=== PATIENT | male | born 1980 | race Caucasian/White ===

== ENCOUNTER 2019-07-20 20:12 | Observation (INO) | payer OTHER ==
[2019-07-20] MEDS ORDERED: SODIUM CHLORIDE 0.9% 1,000 ML IV ONE (21:17)
[2019-07-20] MEDS ORDERED: ONDANSETRON 4 MG/2 ML VIAL IVP STA (21:17)
[2019-07-20] MEDS ORDERED: MORPHINE SULFATE 4 MG/ML SYRINGE IVP STA (21:17)
[2019-07-20] MEDS ORDERED: SODIUM CHLORIDE 0.9% 500 ML 500 ML IV ONE (21:17)
--- NOTE | 2019-07-20 21:47 | ED ---
Abdominal Pain HPI - General Chief Complaint: Abdominal Pain Stated Complaint: Poss Gallbladder Stones Time Seen by Provider: 07/20/19 20:38 Source: patient Mode of arrival: ambulatory Limitations: no limitations - History of Present Illness Initial Comments: 39-year-old male patient presents to the emergency department today for evaluation of midepigastric and right upper quadrant abdominal pain. Patient states the pain has been present for the last 2-3 days. States he did see his doctor who ordered outpatient labs and ultrasound which she did have performed earlier today. Patient states he was called by his doctor and told that he had abnormal lab results and ultrasound and instructed him to come to a facility with a surgeon. Patient states he has been feeling nauseated but has not vomited. States he was having light-colored stools. Denies any constipation or diarrhea. He denies any fever or chills with this. He denies history of ab dominal surgery. Patient denies any recent rash, cough, shortness of breath, chest pain, back pain, numbness, tingling, dizziness, weakness, hematuria, dysuria, urinary urgency, urinary frequency, headache, visual changes, or any other complaints. - Related Data Home Medications Medication Instructions Recorded Confirmed ALPRAZolam [Xanax] 0.25 mg PO BID PRN 07/20/19 07/20/19 Allergies Allergy/AdvReac Type Severity Reaction Status Date / Time Iodinated Contrast Media Allergy Anaphylaxis Verified 07/20/19 22:30 iodine Allergy Anaphylaxis Verified 07/20/19 22:30 Review of Systems ROS Statement: Those systems with pertinent positive or pertinent negative responses have been documented in the HPI. ROS Other: All systems not noted in ROS Statement are negative. Past Medical History Past Medical History: Hypertension History of Any Multi-Drug Resistant Organisms: MRSA Date of last positivie culture/infection: MDRO Source:: rectal Additional Past Surgical History / Comment(s): rectal surgery Past Psychological History: No Psychological Hx Reported Smoking Status: Current every day smoker Past Alcohol Use History: None Reported Past Drug Use History: Marijuana General Exam Limitations: no limitations General appearance: alert, in no apparent distress, other (This is a well- developed, well-nourished adult male patient in no acute distress. Vital signs upon presentation are temperature 98.7F, pulse 102) ENT exam: Present: normal exam, normal oropharynx, mucous membranes moist Respiratory exam: Present: normal lung sounds bilaterally. Absent: respiratory distress, wheezes, rales, rhonchi, stridor Cardiovascular Exam: Present: regular rate, normal rhythm, normal heart sounds. Absent: systolic murmur, diastolic murmur, rubs, gallop, clicks GI/Abdominal exam: Present: soft, tenderness (Midepigastric and right upper quad rant tenderness.), normal bowel sounds, other (Negative Gong sign.). Absent: distended, guarding, rebound, rigid Neurological exam: Present: alert, oriented X3, CN II-XII intact Psychiatric exam: Present: normal affect, normal mood Skin exam: Present: warm, dry, intact, normal color. Absent: rash Course Vital Signs 07/20/19 07/20/19 20:21 22:12 Temperature 98.7 F Pulse Rate 102 H 88 Respiratory 20 18 Rate Blood Pressure 161/82 131/78 O2 Sat by Pulse 97 95 Oximetry Medical Decision Making - Medical Decision Making 39-year-old male patient presents to the emergency department today for evaluati on of upper abdominal pain, midepigastric and right upper quadrant. Physical examination did reveal tenderness over the midepigastric and right upper quadrant regions. Patient did have labs and ultrasound performed outpatient at [facility] this morning. I did obtain records, US showed multiple gallstones, gall bladder wall is upper limits of normal. Hepatomegaly and hepatic steatosis. Labs were reviewed and showed elevated wbc count at 14.6, AST 252, ALT 427, Alk phos 145. Patient will be admitted to the hospital for further evaluation of his abdominal pain and repeat labs in the morning. Disposition Clinical Impression: Abdominal pain, Cholelithiasis Disposition: ADMITTED IP TO THIS HOSP Condition: Serious Decision to Admit Reason: Admit from EC Decision Date: 07/20/19 Decision Time: 22:08
[2019-07-20] MEDS ORDERED: MORPHINE SULFATE 4 MG/ML SYRINGE IV PRN (22:06)
[2019-07-20] MEDS ORDERED: ONDANSETRON 4 MG/2 ML VIAL IVP PRN (22:06)
[2019-07-20] MEDS ORDERED: NALOXONE 0.4 MG/ML 1 ML VIAL IV PRN (22:06)
[2019-07-20] MEDS ORDERED: SODIUM CHLORIDE 0.9% 1,000 ML IV SCH (22:15)
[2019-07-21 08:31] VITALS: BP 104/62; PULSE 82; RESP 18; TEMP 98.5
[2019-07-21] MEDS ORDERED: SODIUM CHLORIDE 0.9% 1,000 ML IV SCH (09:15)
[2019-07-21] MEDS ORDERED: PANTOPRAZOLE 40 MG/10 ML VIAL IVP SCH (09:15)
--- NOTE | 2019-07-21 09:20 | P.GSCN ---
<Elvira Painter - Last Filed: 07/21/19 09:19> History of Present Illness Consult date: 07/21/19 Reason for Consult: abdominal pain Requesting physician: Rachel Davila History of present illness: CHIEF COMPLAINT: Abdominal pain HISTORY OF PRESENT ILLNESS: 39-year-old male who began having epigastric and right upper quadrant abdominal pain on Wednesday. Patient states he had Tahira's and about 15 minutes after he began having discomfort. He states he went to lay down for a few hours and the pain did get a little better. He states the next day he woke up and had a light colored bowel movement which worried him. He contacted his physician who ordered an ultrasound and blood work. The patient reports having this discomfort intermittently for approximately one year. He does report the pain seems to correspond to eating greasy or fatty foods. Denies dark urine. Reports very rare alcohol use. Denies history of hepatitis. PAST MEDICAL HISTORY: See list. PAST SURGICAL HISTORY: See list. SOCIAL HISTORY: No illicit drug use. REVIEW OF SYSTEMS: CONSTITUTIONAL: Denies fever or chills. HEENT: Denies blurred vision, vision changes, or eye pain. Denies hemoptysis CARDIOVASCULAR: Denies chest pain or pressure. RESPIRATORY: No shortness of breath. GASTROINTESTINAL: Refer to HPI for pertinent findings HEMATOLOGIC: Denies bleeding disorders. GENITOURINARY: Denies any blood in urine. SKIN: Denies pruitis. Denies rash. PHYSICAL EXAM: VITAL SIGNS: Reviewed. GENERAL: Well-developed in no acute distress. HEENT: No sclera icterus. Extraocular movements grossly intact. Moist buccal mucosa. Head is atraumatic, normocephalic. ABDOMEN: Soft. Nondistended. Mild tenderness upon palpation of right upper quadrant. NEUROLOGIC: Alert and oriented. Cranial nerves II through XII grossly intact. LABORATORY DATA: Laboratory data from outside facility reveals white count 14.6. Hemoglobin 15.9. Platelet count 264. ALT 427. AST 252. Bilirubin 0.4. Amylase and lipase within normal limits. IMAGING: Abdominal ultrasound: Gallbladder full of shadowing gallstones. Largest measuring approximately 1.7 cm. Gallbladder wall on the upper normal thickness at 0.3 cm. No pericholecystic fluid. No dilation of the common bile duct. ASSESSMENT: 1. Abdominal pain 2. Cholelithiasis, transaminitis, possible acute cholecystitis PLAN: NPO. Continue IV fluids at 100cc/hr Zosyn Q8 hours. Monitor CBC Await repeat CMP Plan for lap juwan. Timing yet to be determined. Nurse practitioner note has been reviewed by physician. Signing provider agrees with the documented findings, assessment, and plan of care. Past Medical History Past Medical History: Hypertension History of Any Multi-Drug Resistant Organisms: MRSA Year Discovered:: MDRO Source:: rectal Additional Past Surgical History / Comment(s): Rectal surgery - polynatal cyst on tailbone, hernia repair as a kid Past Psychological History: No Psychological Hx Reported Smoking Status: Current every day smoker Past Alcohol Use History: None Reported Past Drug Use History: Marijuana - Past Family History Father History Unknown: Yes Medications and Allergies Home Medications Medication Instructions Recorded Confirmed Type ALPRAZolam [Xanax] 0.25 mg PO BID PRN 07/20/19 07/20/19 History Amoxicillin/Potassium Clav 1 tab PO BID 7 Days #14 tab 07/21/19 Rx [Augmentin 875-125 Tablet] Allergies Allergy/AdvReac Type Severity Reaction Status Date / Time Iodinated Contrast Media Allergy Anaphylaxis Verified 07/20/19 22:30 iodine Allergy Anaphylaxis Verified 07/20/19 22:30 Surgical - Exam Vital Signs Temp Pulse Resp BP Pulse Ox 98.7 F 102 H 20 161/82 97 07/20/19 20:21 07/20/19 20:21 07/20/19 20:21 07/20/19 20:21 07/20/19 20:21 <Luis M Barahona - Last Filed: 07/21/19 13:41> History of Present Illness History of present illness: As above. Patient with elevated liver enzymes suspicious for choledocholithiasis. Feels much better today. He notices urine was light colored yesterday. Did not appreciate the color of his urine. History of intermittent episodes happening almost monthly. Ultrasound shows gallstones with a normal bile duct. Today's liver enzymes improved. Both alkaline phosphatase and bilirubin normal. Options reviewed with the patient. He would like to go home today if possible and return next week for elective cholecystectomy. I think that is reasonable given the improvement in his liver enzymes and his improvement in symptoms. Will schedule for elective laparoscopic cholecystectomy Wednesday. We'll repeat CMP on arrival. Risks of bleeding, infection, bile leak, bile duct injury, retained common bile duct stone, trocar injury, conversion to an open procedure, hernia, anesthesia related complications were reviewed. The patient understands and wishes to proceed. Surgical - Exam Vital Signs Temp Pulse Resp BP Pulse Ox 98.7 F 102 H 20 161/82 97 07/20/19 20:21 07/20/19 20:21 07/20/19 20:21 07/20/19 20:21 07/20/19 20:21 Results - Labs 07/21/19 09:23 07/21/19 09:23 Abnormal Lab Results - Last 24 Hours (Table) 07/21/19 07/21/19 Range/Units 09:23 09:23 WBC 13.9 H (3.8-10.6) k/uL Neutrophils # 9.9 H (1.3-7.7) k/uL Glucose 104 H (74-99) mg/dL AST 104 H (17-59) U/L ALT 283 H (4-49) U/L Diabetes panel 07/21/19 Range/Units 09:23 Sodium 139 (137-145) mmol/L Potassium 5.0 (3.5-5.1) mmol/L Chloride 104 (98-107) mmol/L Carbon Dioxide 30 (22-30) mmol/L BUN 13 (9-20) mg/dL Creatinine 0.77 (0.66-1.25) mg/dL Glucose 104 H (74-99) mg/dL Calcium 9.2 (8.4-10.2) mg/dL AST 104 H (17-59) U/L ALT 283 H (4-49) U/L Alkaline Phosphatase 111 (38-126) U/L Total Protein 7.0 (6.3-8.2) g/dL Albumin 3.8 (3.5-5.0) g/dL Calcium panel 07/21/19 Range/Units 09:23 Calcium 9.2 (8.4-10.2) mg/dL Albumin 3.8 (3.5-5.0) g/dL Pituitary panel 07/21/19 Range/Units 09:23 Sodium 139 (137-145) mmol/L Potassium 5.0 (3.5-5.1) mmol/L Chloride 104 (98-107) mmol/L Carbon Dioxide 30 (22-30) mmol/L BUN 13 (9-20) mg/dL Creatinine 0.77 (0.66-1.25) mg/dL Glucose 104 H (74-99) mg/dL Calcium 9.2 (8.4-10.2) mg/dL Adrenal panel 07/21/19 Range/Units 09:23 Sodium 139 (137-145) mmol/L Potassium 5.0 (3.5-5.1) mmol/L Chloride 104 (98-107) mmol/L Carbon Dioxide 30 (22-30) mmol/L BUN 13 (9-20) mg/dL Creatinine 0.77 (0.66-1.25) mg/dL Glucose 104 H (74-99) mg/dL Calcium 9.2 (8.4-10.2) mg/dL Total Bilirubin 0.5 (0.2-1.3) mg/dL AST 104 H (17-59) U/L ALT 283 H (4-49) U/L Alkaline Phosphatase 111 (38-126) U/L Total Protein 7.0 (6.3-8.2) g/dL Albumin 3.8 (3.5-5.0) g/dL
[2019-07-21 09:43] LABS: Basophils % (A) 0 %; Eosinophils # (A) 0.2 k/uL (0-0.7); Eosinophils % (A) 2 %; HCT 48.2 % (39.0-53.0); HGB 15.4 gm/dL (13.0-17.5); Hypochromasia Slight; Lymphocytes # (A) 2.5 k/uL (1.0-4.8); Lymphocytes % (A) 18 %; MCH 30.9 pg (25.0-35.0); MCHC 31.9 g/dL (31.0-37.0); MCV 96.8 fL (80.0-100.0); Mean Platelet Volume 8.3; Monocytes # (A) 0.7 k/uL (0-1.0); Monocytes % (A) 5 %; Neutrophils # (A) 9.9 k/uL (1.3-7.7); Neutrophils % (A) 72 %; Platelet Count 244 k/uL (150-450); RBC 4.98 m/uL (4.30-5.90); RDW 13.4 % (11.5-15.5); WBC 13.9 k/uL (3.8-10.6)
[2019-07-21 09:51] LABS: ALT 283 U/L (4-49); AST 104 U/L (17-59); African American GFR (CKD) >90 (>60 ml/min/1.73 sqM); Albumin 3.8 g/dL (3.5-5.0); Alkaline Phosphatase 111 U/L (38-126); Anion Gap 5 mmol/L; Blood Urea Nitrogen 13 mg/dL (9-20); Calcium 9.2 mg/dL (8.4-10.2); Carbon Dioxide 30 mmol/L (22-30); Chloride 104 mmol/L (98-107); Glucose 104 mg/dL (74-99); Non-African American GFR(CKD) >90 (>60 ml/min/1.73 sqM); Sodium 139 mmol/L (137-145); Total Bilirubin 0.5 mg/dL (0.2-1.3)
[2019-07-21] MEDS ORDERED: NICOTINE 14MG/24HR PATCH TRANSDERM SCH (12:30)
[2019-07-21] MEDS ORDERED: PIPERACILLIN-TAZOBACTAM 3.375 GM in SODIUM CHLORIDE 0.9% 100 ML IVPB SCH (16:00)
--- NOTE | 2019-07-21 16:55 | HP ---
HISTORY AND PHYSICAL CHIEF COMPLAINT: Abdominal pain. HISTORY OF PRESENT ILLNESS: This is the first known admission for this 39-year-old obese male. He states he presented to the emergency room after a 2- or 3-day history of upper abdominal pain which was starting to get worse. He then developed nausea and vomiting. When he came to the emergency room there was a suggestion that this was cholecystitis with cholelithiasis, and he was admitted. REVIEW OF SYSTEMS: He has had no neurologic problems, headaches, difficulty with vision or hearing, chest pain, shortness of breath, cough, pulmonary disease, hypertension, palpitations, heart disease, murmurs, rheumatic fever, orthopnea, PND, hematemesis, melena, hematochezia, cirrhosis, jaundice, etc. He did notice that he had a "shelton stool." He has had no renal failure, renal disease, hematuria, frequency, urgency, dysuria, incontinence, diabetes, etc. Past medical history, family history, and personal and social histories are unremarkable and noncontributory otherwise. The only medication he is on is Xanax. He is ALLERGIC TO IODINE. The only surgery he has had is 3 different procedures for a pilonidal cyst. He smokes a pack of cigarettes a day. PHYSICAL EXAMINATION: Blood pressure 145/85 with a pulse of 69, respirations of 32, and he is afebrile. In general he appeared to be obese. Skin was slightly pale. There was no jaundice. Head, ears, eyes, nose, mouth and throat were normal. The chest was clear. Cardiac exam was normal. The abdomen was protuberant. He was tender over the epigastrium. There were no definite masses. Bowel sounds were present. Extremities were normal. Neurologically he was intact. He is admitted to the hospital with the diagnoses: 1. Upper abdominal pain, etiology unknown. 2. Rule out gallbladder disease, pancreatitis or other etiology. PLAN: 1. Bed rest. 2. IV fluids. 3. Follow-up abdominal exam. 4. Consult with General Surgery. MMODL / IJN: [id number] /
[2019-07-21 17:46] LABS: Hepatitis A Antibody IgM Non-Reactive (Non-Reactive); Hepatitis B Core IgM Non-Reactive (Non-Reactive); Hepatitis B Surface Antigen Non-Reactive (Non-Reactive); Hepatitis C IgG Antibody Non-Reactive (Non-Reactive)
--- NOTE | 2019-07-21 20:02 | DS ---
DISCHARGE SUMMARY CHIEF COMPLAINT: Abdominal pain. HISTORY OF PRESENT ILLNESS AND PHYSICAL EXAMINATION: Details of this man's history and physical can be found in the initial workup. LABORATORY STUDIES: While he was in the hospital he had laboratory studies, details of which can be found in the laboratory section of his chart. COURSE IN THE HOSPITAL: After admission he was placed on bedrest and started on intravenous fluids, and he was kept n.p.o. He was seen by Surgery. It was confirmed that he had cholecystitis and cholelithiasis. Surgery felt that he could be discharged home and undergo surgery in the near future as an outpatient. FINAL DIAGNOSIS: Acute cholecystitis with cholelithiasis. OPERATIONS: None. CONSULTATION: General Surgery. He is improved. MMODL / IJN: [id number] /
== END 2019-07-21 14:43 | disposition home or self-care (01) ==
LOC: EC 20:12 → 4SSUR 22:06
PROVIDERS: ADMIT Family Medicine; ATTEND Family Medicine
DX: K80.00 Calculus of gallbladder with acute cholecystitis without obstruction (principal); I10 Essential (primary) hypertension; K76.0 Fatty (change of) liver, not elsewhere classified; R16.0 Hepatomegaly, not elsewhere classified; R74.0 Nonspecific elevation of levels of transaminase and lactic acid dehydrogenase [LDH]; E66.9 Obesity, unspecified; Z68.43 Body mass index [BMI] 50.0-59.9, adult; R74.8 Abnormal levels of other serum enzymes; Z86.14 Personal history of Methicillin resistant Staphylococcus aureus infection; Z98.890 Other specified postprocedural states; Z91.041 Radiographic dye allergy status; Z91.048 Other nonmedicinal substance allergy status; F17.210 Nicotine dependence, cigarettes, uncomplicated
CPT/HCPCS: 96376; 96361; 96375 ×2; 96374; 99285; 80053; 80074; 83690; 85025; 87635; G0378 ×2; S4990; J2270 ×2; J2405 ×2; C9113

== ENCOUNTER 2019-07-25 12:03 | Day surgery (SDC) | payer OTHER ==
[~2019-07-25 12:03] MED LIST: DEXAMETHASONE SOD PHOSPHATE 10 MG/ML 1 ML VIAL IV ONE; HYDROmorphone 0.5 MG/0.5 ML SYRINGE IVP PRN; LACTATED RINGERS 1,000 ML IV SCH; LIDOCAINE 1% (10MG/ML) FOR IV START INTRADERMA PRN; MIDAZOLAM 2 MG/2 ML VIAL IV PRN; ONDANSETRON 4 MG/2 ML VIAL IVP ONE; fentaNYL (PF) 50 MCG/ML 2 ML AMP IV PRN
--- NOTE | 2019-07-25 12:29 | P.GSHP ---
History of Present Illness H&P Date: 07/25/19 Chief Complaint: Choledocholithiasis Please refer to consult from last week. Patient was in the hospital with right upper quadrant and epigastric pain. Was found to have elevated liver enzymes. Liver enzymes were improving. Patient's pain was likewise resolving. He was discharged home with plans for outpatient cholecystectomy. Returns to the hospital today for laparoscopic cholecystectomy. Pain still improved. Labs from today are pending. Previous workup showed multiple gallstones on ultrasound. Hepatitis studies negative. Past Medical History Past Medical History: Hypertension History of Any Multi-Drug Resistant Organisms: MRSA Date of last positivie culture/infection: MDRO Source:: rectal Additional Past Surgical History / Comment(s): Rectal surgery - polynatal cyst on tailbone, hernia repair as a kid Past Psychological History: No Psychological Hx Reported Smoking Status: Current every day smoker Past Alcohol Use History: None Reported Past Drug Use History: Marijuana - Past Family History Father History Unknown: Yes Medications and Allergies Home Medications Medication Instructions Recorded Confirmed Type ALPRAZolam [Xanax] 0.25 mg PO BID PRN 07/20/19 07/20/19 History Amoxicillin/Potassium Clav 1 tab PO BID 7 Days #14 tab 07/21/19 Rx [Augmentin 875-125 Tablet] Allergies Allergy/AdvReac Type Severity Reaction Status Date / Time Iodinated Contrast Media Allergy Anaphylaxis Verified 07/20/19 22:30 iodine Allergy Anaphylaxis Verified 07/20/19 22:30 Surgical - Exam Physical exam: General: Well-developed, well-nourished HEENT: Normocephalic, sclerae nonicteric Abdomen: Nontender, nondistended Extremities: No edema Neuro: Alert and oriented Assessment and Plan (1) Choledocholithiasis Narrative/Plan: 39-year-old male with suspected choledocholithiasis. Check CMP level at this time. Proceed with laparoscopic, possible open cholecystectomy at this time. Risks of bleeding, infection, bile leak, bile duct injury, retained common bile duct stone, trocar injury, conversion to an open procedure, hernia, anesthesia related complications were reviewed. The patient understands and wishes to proceed. Current Visit: Yes Status: Acute Code(s): K80.50 - CALCULUS OF BILE DUCT W/O CHOLANGITIS OR CHOLECYST W/O OBST SNOMED Code(s): 220804046
[2019-07-25 12:40] VITALS: RESP 16
[2019-07-25] MEDS ORDERED: ONDANSETRON 4 MG/2 ML VIAL IVP ONE (12:45)
[2019-07-25] MEDS ORDERED: DEXAMETHASONE SOD PHOSPHATE 10 MG/ML 1 ML VIAL IV ONE (12:45)
[2019-07-25] MEDS ORDERED: SCOPOLAMINE 1.5MG/72HR PATCH TRANSDERM ONE (12:46)
[2019-07-25] MEDS ORDERED: HEPARIN SODIUM,PORCINE 5,000 UNIT/ML 1 ML VIAL SQ ONE (12:59)
[2019-07-25 13:07] LABS: ALT 81 U/L (4-49); AST 32 U/L (17-59); African American GFR (CKD) >90 (>60 ml/min/1.73 sqM); Albumin 4.5 g/dL (3.5-5.0); Alkaline Phosphatase 102 U/L (38-126); Anion Gap 11 mmol/L; Blood Urea Nitrogen 20 mg/dL (9-20); Carbon Dioxide 27 mmol/L (22-30); Chloride 104 mmol/L (98-107); Glucose 112 mg/dL (74-99); Non-African American GFR(CKD) >90 (>60 ml/min/1.73 sqM); Potassium 4.9 mmol/L (3.5-5.1); Sodium 142 mmol/L (137-145); Total Bilirubin 0.5 mg/dL (0.2-1.3); Total Protein 8.1 g/dL (6.3-8.2)
[2019-07-25] MEDS ORDERED: NEOSTIGMINE 1 MG/ML 10 ML VIAL ONE (13:08)
[2019-07-25] MEDS ORDERED: PROPOFOL 10 MG/ML 20 ML VIAL IV ONE (13:08)
[2019-07-25] MEDS ORDERED: fentaNYL (PF) 50 MCG/ML 2 ML AMP ONE (13:08)
[2019-07-25] MEDS ORDERED: GLYCOPYRROLATE 0.2 MG/ML 2 ML VIAL ONE (13:08)
[2019-07-25] MEDS ORDERED: MIDAZOLAM 2 MG/2 ML VIAL ONE (13:08)
[2019-07-25] MEDS ORDERED: ROCURONIUM BROMIDE 10 MG/ML 5 ML VIAL IV ONE (13:08)
[2019-07-25] MEDS ORDERED: LIDOCAINE 1% INJ 10MG/ML (20 ML MDV) ONE (13:08)
[2019-07-25] MEDS ORDERED: SUCCINYLCHOLINE CHLORIDE VIAL 200 MG/10 ML VIAL IV ONE (13:08)
[2019-07-25] MEDS ORDERED: BUPIVACAIN-EPI 0.25%-1:200,000 30 ML VIAL SQ ONE (13:13)
[2019-07-25] MEDS ORDERED: LACTATED RINGERS 1,000 ML IV ONE (14:09)
[2019-07-25] MEDS ORDERED: NALOXONE 0.4 MG/ML 1 ML VIAL IV PRN (14:39)
[2019-07-25] MEDS ORDERED: HYDROcodone/APAP 5-325MG 1 EACH TAB PO PRN (14:39)
--- NOTE | 2019-07-25 14:47 | P.OP ---
Date of Procedure: 07/25/19 Procedure(s) Performed: PREOPERATIVE DIAGNOSIS: Choledocholithiasis POSTOPERATIVE DIAGNOSIS: Same PROCEDURE: Laparoscopic cholecystectomy SURGEON: [place] EBL: Minimal see anesthesia record ANESTHESIA: Gen. COMPLICATIONS: None OPERATIVE PROCEDURE: The patient was brought and placed on the operating room table in the supine position. The patient was placed under general anesthesia at that time. The abdomen was prepped and draped in the usual sterile fashion. A small horizontal supraumbilical incision was made. The fascia was grasped with the Brenda forceps. The fascia was retracted anteriorly. The Veress needle was advanced into the peritoneal cavity. The saline drop test was normal. Insufflation took place up to 15 mmHg. A 5 mm optical trocar was advanced and the peritoneal cavity. 2 additional 5 mm trochars were placed in the right upper quadrant under direct visualization. A 12 mm trocar was advanced into the epigastric incision site. The patient's liver was quite large. We could not visualize stomach or liver given these significant volume of intraperitoneal omental fat. An additional 5 mm trocar was utilized in the left supraumbilical location to retract the omental fat inferiorly and posteriorly. The gallbladder was retracted superiorly and laterally. The peritoneum overlying the infundibulum was bluntly dissected. The patient's cystic duct was visualized. The junction between the cystic duct common and hepatic duct was identified. The cystic duct was then divided after placement of 3 12 mm clips on the patient's side and one on the specimen side. The cystic artery was identified and clipped as well. A small vessel was seen along the gallbladder fossa and clipped as well. The gallbladder was then removed from the liver bed using both electrocautery and the LigaSure device. The gallbladder was then removed from the epigastric trocar site with an Endo Catch bag. The gallbladder fossa was irrigated with saline. There was no evidence of any bleeding or biliary drainage seen. The fascia at the 12 millimeter site was closed using a Greg-Lashell 0 Vicryl stitch. The trochars were then removed. The skin at all 5 sites was closed using a 4-0 Monocryl stitch. Skin glue was utilized on the incision sites. At the end of this procedure the sponge and needle counts were correct. DISPOSITION: Stable to the recovery room
[2019-07-25] MEDS ORDERED: HYDROmorphone 1 MG/ML 1 ML SYRINGE IVP ONE ×3 (14:54→15:30)
[2019-07-25] MEDS ORDERED: KETOROLAC 30 MG/ML 1 ML VIAL IVP ONE (14:55)
[2019-07-25 14:58] VITALS: TEMP 998.1
[2019-07-25 16:02] VITALS: BP 104/61; PULSE 91
== END 2019-07-25 16:16 | disposition home or self-care (01) ==
LOC: OR 12:03
PROVIDERS: ATTEND Surgery
DX: K80.10 Calculus of gallbladder with chronic cholecystitis without obstruction (principal); I10 Essential (primary) hypertension; Z98.890 Other specified postprocedural states; E66.9 Obesity, unspecified; Z68.43 Body mass index [BMI] 50.0-59.9, adult; F17.200 Nicotine dependence, unspecified, uncomplicated; Z91.048 Other nonmedicinal substance allergy status; Z86.14 Personal history of Methicillin resistant Staphylococcus aureus infection; Z91.041 Radiographic dye allergy status; G47.33 Obstructive sleep apnea (adult) (pediatric)
CPT/HCPCS: 80053; 47562; J2250; J0330; J1644; J1100; J2710; J0690; J2405; J2001; J3010; J1885; J1170; J2704; 88304

== ENCOUNTER 2019-10-29 08:18 | Inpatient (IN) | payer OTHER ==
[2019-10-29] MEDS ORDERED: ATORVASTATIN 40 MG TAB PO SCH (10:15)
[2019-10-29 10:54] LABS: Basophils # (A) 0.1 k/uL (0-0.2); Basophils % (A) 1 %; Eosinophils # (A) 0.5 k/uL (0-0.7); Eosinophils % (A) 3 %; HCT 52.1 % (39.0-53.0); HGB 16.4 gm/dL (13.0-17.5); Lymphocytes # (A) 3.5 k/uL (1.0-4.8); Lymphocytes % (A) 22 %; MCH 29.7 pg (25.0-35.0); MCHC 31.4 g/dL (31.0-37.0); MCV 94.6 fL (80.0-100.0); Mean Platelet Volume 8.2; Monocytes % (A) 7 %; Neutrophils # (A) 10.4 k/uL (1.3-7.7); Neutrophils % (A) 66 %; Platelet Count 293 k/uL (150-450); RBC 5.51 m/uL (4.30-5.90); RDW 13.4 % (11.5-15.5); WBC 15.9 k/uL (3.8-10.6)
[2019-10-29 11:01] LABS: Prothrombin Time 10.7 sec (9.0-12.0)
[2019-10-29 11:45] LABS: Cholesterol 227 mg/dL (<200); HDL Cholesterol 25 mg/dL (40-60); LDL Cholesterol,Calculated 170 mg/dL (0-99); Triglycerides 161 mg/dL (<150)
--- NOTE | 2019-10-29 12:22 | P.HPIM ---
History of Present Illness This is a pleasant 39-year-old years old male with past medical history of hypertension, not on medication. Cigarette smoker. Patient wasn't transferred from [facility]. He presents because of 2 episodes of chest pain that started yesterday and felt like that this in the chest, radiating to the throat with left arm numbness, resolved but recurred again this morning at 8:00. Patient described it as nonspecific tightness further that pain. Little bit with dyspnea but no sweating or vomiting or palpitation or dizziness. No fever or change in urine or bowel habits He smokes about 1 pack per day, smokes marijuana but no illicit drugs In [facility] the EKG showing normal sinus rhythm with no significant ST-T changes, rate is 83 and QTC is 420. Left showing INR 1.0, d-dimer is elevated at 0.7, BNP is normal at 22.7 Sharmin troponin is elevated at 0.1, magnesium 2.0, sodium 140, potassium 4.3, ALT is normal at 37, AST is normal at 24, creatinine is slightly up at 1.4, GFR is 56, total bili 0.3 WBC is elevated at 14.5 K, hemoglobin 16.4, platelets 274k, He smokes about 1 pack per day, no alcohol or illicit drugs Labs checked here and showing troponin 0.15, triglycerides and cholesterol are elevated, WBCs 15.9 K. Review of Systems CONSTITUTIONAL: No fever, no malaise, no fatigue. HEENT: No recent visual problems or hearing problems. Denied any sore throat. CARDIOVASCULAR: No orthopnea, PND, no palpitations, no syncope. PULMONARY: No shortness of breath, no cough, no hemoptysis. GASTROINTESTINAL: No diarrhea, no nausea, no vomiting, no abdominal pain. Normoa ctive bowel sounds. NEUROLOGICAL: No headaches, no weakness, no numbness. HEMATOLOGICAL: Denies any bleeding or petechiae. GENITOURINARY: Denies any burning micturition, frequency, or urgency. MUSCULOSKELETAL/RHEUMATOLOGICAL: Denies any joint pain, swelling, or any muscle pain. ENDOCRINE: Denies any polyuria or polydipsia. Past Medical History Past Medical History: Hypertension History of Any Multi-Drug Resistant Organisms: MRSA Date of last positivie culture/infection: MDRO Source:: rectal Additional Past Surgical History / Comment(s): Rectal surgery - polynatal cyst on tailbone, hernia repair as a kid Past Psychological History: No Psychological Hx Reported Past Alcohol Use History: None Reported Past Drug Use History: Marijuana - Past Family History Father History Unknown: Yes Medications and Allergies Home Medications Medication Instructions Recorded Confirmed Type ALPRAZolam [Xanax] 0.25 mg PO BID PRN 07/20/19 10/29/19 History Allergies Allergy/AdvReac Type Severity Reaction Status Date / Time Iodinated Contrast Media Allergy Anaphylaxis Verified 10/29/19 11:43 iodine Allergy Anaphylaxis Verified 10/29/19 11:43 Physical Exam Vitals: Intake and Output 10/28/19 10/29/19 10/29/19 22:59 06:59 14:59 Other: Weight 142.882 kg -GENERAL: The patient is alert and oriented x3, not in any acute distress. Morbid obesity HEENT: Pupils are round and equally reacting to light. EOMI. No scleral icterus. No conjunctival pallor. Normocephalic, atraumatic. No pharyngeal erythema. No thyromegaly. CARDIOVASCULAR: S1 and S2 present. No murmurs, rubs, or gallops. PULMONARY: Chest is clear to auscultation, no wheezing or crackles. ABDOMEN: Soft, nontender, nondistended, normoactive bowel sounds. No palpable organomegaly. MUSCULOSKELETAL: No joint swelling or deformity. EXTREMITIES: No cyanosis, clubbing, or pedal edema. NEUROLOGICAL: Gross neurological examination did not reveal any focal deficits. SKIN: No rashes. No petechiae Results CBC & Chem 7: 10/29/19 10:20 Labs: Abnormal Lab Results - Last 24 Hours (Table) 10/29/19 10/29/19 10/29/19 Range/Units 10:20 10:20 10:21 WBC 15.9 H (3.8-10.6) k/uL Neutrophils # 10.4 H (1.3-7.7) k/uL APTT 88.0 H (22.0-30.0) sec Troponin I 0.154 H* (0.000-0.034) ng/mL Assessment and Plan Assessment: None STEMI Hypertension Mild acute kidney injury Morbid obesity with BMI of 47 Nicotine dependence Plan: This is a pleasant 39 years old male who presents with non-STEMI, continue with heparin drip. We'll do. Serial troponin. Cardiology consult. We'll check echocardiogram. Continue with aspirin and Lipitor. Labs and medication were reviewed.. Continue same treatment. Continue with symptomatic treatment. Resume home medication. Monitor lytes and vitals. DVT and GI prophylaxis. Further recommendations of the clinical course of the patient DVT prophylaxis: heparin GI Prophylaxis: Pepcid Prognosis is guarded
[2019-10-29] MEDS ORDERED: NITROGLYCERIN SL TABS 0.4 MG TAB SUBLINGUAL PRN (13:36)
[2019-10-29] MEDS ORDERED: SODIUM CHLORIDE 0.9% 1,000 ML in EMPTY BAG 1 BAG IV ONE (13:36)
--- NOTE | 2019-10-29 13:41 | P.CRDCN ---
History of Present Illness History of present illness: tightness in the chest through to the back and into the left arm and shoulder. happened after he laid down to sleep this morning after work. lasted approximately 5 minutes. HISTORY OF PRESENTING ILLNESS This is a pleasant 39-year-old male past medical history significant for hypertension although not taking antihypertensives, chronic nicotine dependence and marijuana use. He denies prior history of coronary artery disease and does not follow with a stuffed casing tier for any reason. He denies family history of premature coronary artery disease. We have been asked to see in consultation for chest pain with elevated troponins. 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 Noticed a tightness in his chest in the midsternal region radiating through to his back into the left shoulder and down the left arm. It lasted for approximately 5 minutes and subsided on its own. He went to sleep AND went to work last night without incident. Again this morning when he got home from work and lay down to sleep he had a similar episode of chest discomfort. He was on his way to the emergency department and the chest pain subsided promptly him to turn back around to go home. Only been home for about 5 minutes he sat down on the couch in his chest pain returned. He went back to the hospital for evaluation. On arrival to the emergency department his EKG was unremarkable revealing sinus mechanism with no acute ischemic changes. His troponin value was elevated at 0.112. He was transferred here from [facility] for further cardiac evaluation. He is seen and examined resting comfortably laying flat in bed in no acute distress. He has had no further symptoms of chest discomfort since this morning. He states presently 3 years ago he was diagnosed with hypertension and started on lisinopril which she took for approximately 6 months and then his blood pressure improved and this was discontinued according to the patient by his PCP. He has never had a cardiac catheterization or stress testing in the outpatient setting. Other pertinent laboratory values reviewed, WBC 15.9, hemoglobin 16.4, platelets 293 second troponin obtained here 0.154, LDL 170, HDL 25, triglyceride 161, total cholesterol 227, magnesium 2.0, sodium 140, potassium 4.3 and creatinine of 1.4. REVIEW OF SYSTEMS At the time of my exam: CONSTITUTIONAL: Denies fever or chills. CARDIOVASCULAR: Denies chest pain, shortness of breath, orthopnea, PND or palpitations. RESPIRATORY: Denies cough. GASTROINTESTINAL: Denies abdominal pain, diarrhea, constipation, nausea or vomiting. MUSCULOSKELETAL: Denies myalgias. NEUROLOGIC: Denies numbness, tingling or weakness. ENDOCRINE: Denies fatigue, weight change, polydipsia or polyurina. GENITOURINARY: Denies burning, hematuria or urgency with micturation. HEMATOLOGIC: Denies history of anemia or bleeding. PHYSICAL EXAMINATION Blood pressure 120s over 80s heart rate 67 afebrile and maintaining oxygen saturation on room air. CONSTITUTIONAL: No apparent distress. Morbidly obese. HEENT: Head is normocephalic. Pupils are equal, round. Sclerae anicteric. Mucous membranes of the mouth are moist. No JVD. No carotid bruit. CHEST EXAMINATION: Lungs are clear to auscultation. No chest wall tenderness is noted on palpation or with deep breathing. HEART EXAMINATION: Regular rate and rhythm. S1, S2 heard. No murmurs, gallops or rub. ABDOMEN: Soft, nontender. Positive bowel sounds. EXTREMITIES: 2+ peripheral pulses, no lower extremity edema and no calf tenderness. NEUROLOGIC EXAMINATION: Patient is awake, alert and oriented x3. ASSESSMENT Non-ST elevated myocardial infarction Hypertension Leukocytosis Acute kidney injury Chronic nicotine dependence Dyslipidemia Morbid obesity, BMI 47 PLAN Initiate aspirin 81 mg daily, atorvastatin 80 mg daily and Lopressor 25 mg twice a day. Continue heparin infusion and Nitropaste as needed for chest pain. Recommend proceeding with cardiac catheterization to assess coronary arteries. I have discussed the risks, benefits and alternative therapies for the above- mentioned procedure and for both sedation/analgesia as well as necessary blood product administration, if indicated, as they pertain to this patient. The patient has indicated understanding and acceptance of the risks and procedures discussed. Questions have been answered appropriately and he is agreeable to proceed with above stated procedure. Obtain 2D echocardiogram and doppler study to assess cardiac structure and function. Further recommendations to follow based on clinical course. We will start an MABEL inhibitor if his blood pressure will tolerate. Smoking cessation recommended. Thank you kindly for this consultation. Nurse Practitioner note has been reviewed, I agree with a documented findings and plan of care. Patient was seen and examined. Past Medical History Past Medical History: Hypertension History of Any Multi-Drug Resistant Organisms: MRSA Date of last positivie culture/infection: MDRO Source:: rectal Additional Past Surgical History / Comment(s): Rectal surgery - polynatal cyst on tailbone, hernia repair as a kid Past Psychological History: No Psychological Hx Reported Past Alcohol Use History: None Reported Past Drug Use History: Marijuana - Past Family History Father History Unknown: Yes Medications and Allergies Home Medications Medication Instructions Recorded Confirmed Type ALPRAZolam [Xanax] 0.25 mg PO BID PRN 07/20/19 10/29/19 History Ibuprofen [Motrin Ib] 800 mg PO Q6H PRN 10/29/19 10/29/19 History Allergies Allergy/AdvReac Type Severity Reaction Status Date / Time Iodinated Contrast Media Allergy Anaphylaxis Verified 10/29/19 13:13 iodine Allergy Anaphylaxis Verified 10/29/19 13:13 Physical Exam Vitals: Intake and Output 10/28/19 10/29/19 10/29/19 22:59 06:59 14:59 Other: Weight 142.882 kg Results 10/29/19 10:20 Coagulation 10/29/19 Range/Units 10:20 PT 10.7 (9.0-12.0) sec APTT 88.0 H (22.0-30.0) sec CBC 10/29/19 Range/Units 10:20 WBC 15.9 H (3.8-10.6) k/uL RBC 5.51 (4.30-5.90) m/uL Hgb 16.4 (13.0-17.5) gm/dL Hct 52.1 (39.0-53.0) % Plt Count 293 (150-450) k/uL Current Medications Generic Name Dose Route Start Last Admin Trade Name Freq PRN Reason Stop Dose Admin Aspirin 81 mg 10/30/19 09:00 Aspirin PO DAILY [facility] Atorvastatin Calcium 40 mg 10/29/19 10:15 Lipitor PO DAILY [facility] Heparin Sodium/Sodium Chloride 250 mls @ 10.002 mls/hr 10/29/19 10:00 25,000 unit/ Sodium Chloride IV .Q24H [facility] Protocol 7 UNITS/KG/HR Metoprolol Tartrate 25 mg 10/29/19 10:15 Lopressor PO BID [facility] Intake and Output 10/28/19 10/29/19 10/29/19 22:59 06:59 14:59 Other: Weight 142.882 kg Patient Weight 10/30/19 06:59 Weight 142.882 kg 10/29/19 10:20
[2019-10-29] MEDS: HEPARIN SOD,PORK IN 0.45% NACL 25,000 UNIT in 0.45% NACL 1 250ML.BAG IV SCH ×2 (14:43→14:44)
[2019-10-29] MEDS: NICOTINE 21MG/24HR PATCH TRANSDERM SCH (16:43)
[2019-10-29] MEDS: METOPROLOL TARTRATE 25 MG TAB PO SCH ×2 (16:43→20:10)
[2019-10-29] MEDS: ALPRAZolam 0.25 MG TAB PO PRN (16:59)
[2019-10-29] MEDS: FAMOTIDINE 20 MG/2 ML VIAL IV SCH (20:10)
[2019-10-30] MEDS: METOPROLOL TARTRATE 25 MG TAB PO SCH ×2 (05:45→19:45)
[2019-10-30] MEDS: ATORVASTATIN 80 MG TAB PO SCH (05:45)
[2019-10-30] MEDS: FAMOTIDINE 20 MG/2 ML VIAL IV SCH (05:46)
[2019-10-30] MEDS: NICOTINE 21MG/24HR PATCH TRANSDERM SCH (05:48)
[2019-10-30] MEDS ORDERED: ASPIRIN 325 MG TAB PO ONE (06:00)
[2019-10-30 07:35] LABS: Basophils # (A) 0.1 k/uL (0-0.2); Basophils % (A) 1 %; Eosinophils # (A) 0.3 k/uL (0-0.7); Eosinophils % (A) 2 %; HCT 49.9 % (39.0-53.0); HGB 15.6 gm/dL (13.0-17.5); Hypochromasia Slight; Lymphocytes # (A) 2.6 k/uL (1.0-4.8); Lymphocytes % (A) 19 %; MCH 29.7 pg (25.0-35.0); MCHC 31.3 g/dL (31.0-37.0); Mean Platelet Volume 8.4; Monocytes # (A) 0.6 k/uL (0-1.0); Monocytes % (A) 5 %; Neutrophils # (A) 9.4 k/uL (1.3-7.7); Neutrophils % (A) 70 %; Platelet Count 264 k/uL (150-450); RBC 5.25 m/uL (4.30-5.90); RDW 13.5 % (11.5-15.5); WBC 13.5 k/uL (3.8-10.6)
[2019-10-30 07:51] LABS: African American GFR (CKD) >90 (>60 ml/min/1.73 sqM); Anion Gap 5 mmol/L; Blood Urea Nitrogen 16 mg/dL (9-20); Calcium 9.5 mg/dL (8.4-10.2); Carbon Dioxide 31 mmol/L (22-30); Chloride 102 mmol/L (98-107); Glucose 95 mg/dL (74-99); Non-African American GFR(CKD) >90 (>60 ml/min/1.73 sqM); Sodium 138 mmol/L (137-145)
[2019-10-30 07:52] LABS: D-Dimer 0.45 mg/L FEU (<0.60); Partial Thromboplastin Time 31.7 sec (22.0-30.0)
--- NOTE | 2019-10-30 08:08 | XR ---
EXAMINATION TYPE: XR chest 1V DATE OF EXAM: 10/30/2019 COMPARISON: NONE HISTORY: Chest pain TECHNIQUE: Single frontal view of the chest is obtained. FINDINGS: Technique is apical lordotic. Heart is enlarged. No evident pneumothorax or pleural effusi on. There is motion on the exam. Eventration of the right hemidiaphragm is suspected. Central vascula rity and eliseo are within normal limits. There is normal bone mineralization. There are overlying card iac leads. IMPRESSION: Cardiomegaly. Possible limitations, consider follow-up PA and lateral chest x-ray when p atient is stable.
[2019-10-30] MEDS ORDERED: ASPIRIN 81 MG PO SCH (09:00)
[2019-10-30] MEDS ORDERED: ALPRAZolam 0.5 MG TAB PO PRN (09:06)
[2019-10-30] MEDS ORDERED: SODIUM CHLORIDE 0.9% 1,000 ML in EMPTY BAG 1 BAG IV ONE (09:06)
[2019-10-30] MEDS ORDERED: ALPRAZolam 0.25 MG TAB PO PRN (09:06)
[2019-10-30] MEDS ORDERED: NITROGLYCERIN SL TABS 0.4 MG TAB SUBLINGUAL PRN (09:06)
[2019-10-30] MEDS: diphenhydrAMINE 25 MG CAP PO SCH ×3 (09:35→20:57)
[2019-10-30] MEDS: predniSONE 20 MG TAB PO SCH ×4 (09:35→20:57)
[2019-10-30] MEDS: FAMOTIDINE 20 MG TAB PO SCH ×2 (09:36→19:45)
[2019-10-30] MEDS: HEPARIN SOD,PORK IN 0.45% NACL 25,000 UNIT in 0.45% NACL 1 250ML.BAG IV SCH ×2 (09:37→21:20)
[2019-10-30] MEDS: ALPRAZolam 0.25 MG TAB PO PRN (09:38)
--- NOTE | 2019-10-30 10:35 | P.PN ---
Subjective Progress Note Date: 10/30/19 CHIEF COMPLAINT: Chest pain HISTORY OF PRESENT ILLNESS: Patient examined this morning at the bedside. Patient was scheduled for cardiac catheterization today with Dr. Rose. However, this was cancelled due to iodine allergy with previous anaphylactic reaction. Patient denies chest pain. He denies shortness of breath. PHYSICAL EXAM: VITAL SIGNS: Reviewed. GENERAL: Well-developed in no acute distress. NECK: Supple. No JVD or thyromegaly LUNGS: Respirations even and unlabored. Lungs essentially clear to auscultation bilaterally. HEART: Regular rate and rhythm. S1 and S2 heard. EXTREMITIES: Normal range of motion. No clubbing or cyanosis. Peripheral pulses intact. No lower extremity edema ASSESSMENT: Non-ST elevated myocardial infarction Hypertension Leukocytosis Acute kidney injury Chronic nicotine dependence Dyslipidemia Morbid obesity, BMI 47 PLAN: -Continue current cardiac medications including aspirin, Lipitor, and Lopressor -Continue IV heparin -May resume diet today. NPO at midnight -Begin prednisone 20 mg QID, Benadryl 25 mg TID, and Pepcid 20mg BID for iodine allergy -Echo ordered. Await results. -Patient will be rescheduled for cardiac cath tomorrow with Dr. Rose Nurse practitioner note has been reviewed by physician. Signing provider agrees with the documented findings, assessment, and plan of care. Objective - Vital Signs Vital signs: Vital Signs Temp 97.9 F 10/30/19 04:00 Pulse 77 10/30/19 04:00 Resp 18 10/30/19 04:00 BP 155/89 10/30/19 04:00 Pulse Ox 96 10/30/19 04:00 Intake & Output 10/29/19 10/30/19 10/30/19 18:59 06:59 18:59 Intake Total 522.509 692.396 115.095 Output Total 400 Balance 122.509 692.396 115.095 Weight 142.882 kg 150.2 kg Intake: Intake, IV Titration 42.509 692.396 115.095 Amount Heparin Sod,Pork in 0.45% 42.509 92.396 115.095 NaCl 25,000 unit In 0.45 % NaCl 1 250ml.bag @ 7 UNITS/KG/HR 10.002 mls/hr IV .Q24H [facility] Rx#: [id number] Sodium Chloride 0.9% 1, 600 000 ml In Empty Bag 1 bag @ 1 ML/KG/HR 142.882 mls /hr IV .Q7H ONE Rx#: [id number] Oral 480 Output: Urine 400 Other: Voiding Method Toilet Toilet # Voids 3 1 - Labs CBC & Chem 7: 10/30/19 06:32 10/30/19 06:32 Labs: Abnormal Lab Results - Last 24 Hours (Table) 10/29/19 10/29/19 10/29/19 Range/Units 10:20 10:20 10:21 WBC 15.9 H (3.8-10.6) k/uL Neutrophils # 10.4 H (1.3-7.7) k/uL APTT 88.0 H (22.0-30.0) sec Carbon Dioxide (22-30) mmol/L Troponin I (0.000-0.034) ng/mL Triglycerides 161 H (<150) mg/dL Cholesterol 227 H (<200) mg/dL LDL Cholesterol, Calc 170 H (0-99) mg/dL HDL Cholesterol 25 L (40-60) mg/dL 10/29/19 10/29/19 10/30/19 Range/Units 10:21 17:16 06:32 WBC 13.5 H (3.8-10.6) k/uL Neutrophils # 9.4 H (1.3-7.7) k/uL APTT 30.9 H (22.0-30.0) sec Carbon Dioxide (22-30) mmol/L Troponin I 0.154 H* (0.000-0.034) ng/mL Triglycerides (<150) mg/dL Cholesterol (<200) mg/dL LDL Cholesterol, Calc (0-99) mg/dL HDL Cholesterol (40-60) mg/dL 10/30/19 10/30/19 Range/Units 06:32 06:32 WBC (3.8-10.6) k/uL Neutrophils # (1.3-7.7) k/uL APTT 31.7 H (22.0-30.0) sec Carbon Dioxide 31 H (22-30) mmol/L Troponin I (0.000-0.034) ng/mL Triglycerides (<150) mg/dL Cholesterol (<200) mg/dL LDL Cholesterol, Calc (0-99) mg/dL HDL Cholesterol (40-60) mg/dL
--- NOTE | 2019-10-30 11:36 | ECHOF ---
Referral Reason:cp MEASUREMENTS -------- HEIGHT: 172.7 cm WEIGHT: 150.1 kg BP: IVSd: 1.3 cm (0.6 - 1.1) LVIDd: 5.6 cm (3.9 - 5.3) LVPWd: 1.3 cm (0.6 - 1.1) EDV(Teich): 151 ml IVSs: 1.8 cm LVIDs: 3.9 cm LVPWs: 1.7 cm %IVS Thck: 31 % ESV(Teich): 67 ml EF(Teich): 56 % %FS: 29 % SV(Teich): 84 ml LA Diam: 4.1 cm (2.7 - 3.8) RVIDd: 3.8 cm (< 3.3) Ao Diam: 3.0 cm (2.0 - 3.7) AV Cusp: 2.6 cm (1.5 - 2.6) EPSS: 0.2 cm MV E Ronen: 0.67 m/s MV DecT: 155 ms MV Dec [place]: 4.3 m/s MV A Ronen: 0.53 m/s MV E/A Ratio: 1.27 MV PHT: 45 ms TR Vmax: 1.02 m/s TR maxP.13 mmHg RAP: 5.00 mmHg RVSP: 9.13 mmHg MV EF SLOPE: 141.97 mm/s (70 - 150) MV EXCURSION: 22.56 mm (> 18.000) FINDINGS -------- Sinus rhythm. This was a technically adequate study. Morbid Obesity The left ventricular size is normal. There is mild concentric left ventricular hypertrophy. Overa ll left ventricular systolic function is low-normal with, an EF between 50 - 55 %. The right ventricle is normal in size. The right ventricular wall thickness is normal measuring < 5 mm. The left atrial size is normal. The right atrial size is normal. The aortic valve is trileaflet, and appears structurally normal. No aortic stenosis or regurgitation. Mild mitral regurgitation is present. No regurgitation noted Right ventricular systolic pressure is normal at < 35 mmHg. The pulmonic valve was not well visualized. The aortic root size is normal. There is no pericardial effusion. CONCLUSIONS -------- 1. The left ventricular size is normal. 2. Overall left ventricular systolic function is low-normal with, an EF between 50 - 55 %. 3. The right atrial size is normal. 4. Mild mitral regurgitation is present. 5. No regurgitation noted [employer]PARER: Rosa Trevino RDCS
--- NOTE | 2019-10-30 11:55 | P.PN ---
Subjective This is a pleasant 39-year-old years old male with past medical history of hypertension, not on medication. Cigarette smoker. Patient wasn't transferred from [facility]. He presents because of 2 episodes of chest pain that started yesterday and felt like that this in the chest, radiating to the throat with left arm numbness, resolved but recurred again this morning at 8:00. Patient described it as nonspecific tightness further that pain. Little bit with dyspnea but no sweating or vomiting or palpitation or dizziness. No fever or change in urine or bowel habits He smokes about 1 pack per day, smokes marijuana but no illicit drugs In [facility] the EKG showing normal sinus rhythm with no significant ST-T changes, rate is 83 and QTC is 420. Left showing INR 1.0, d-dimer is elevated at 0.7, BNP is normal at 22.7 Sharmin troponin is elevated at 0.1, magnesium 2.0, sodium 140, potassium 4.3, ALT is normal at 37, AST is normal at 24, creatinine is slightly up at 1.4, GFR is 56, total bili 0.3 WBC is elevated at 14.5 K, hemoglobin 16.4, platelets 274k, He smokes about 1 pack per day, no alcohol or illicit drugs Labs checked here and showing troponin 0.15, triglycerides and cholesterol are elevated, WBCs 15.9 K. 10/30/2019 Patient is fully awake and oriented, resting in bed comfortably. No chest pain or dyspnea. No dizziness and no other new complaints. Vitals are stable, d-dimer is negative at 0.45 and suspicion for pulmonary embolism is very low and no need for further workup as it has more risks than b enefits Leukocytosis improvement of 13.5 K. BMP is unremarkable. Patient is going for cardiac cath today Review of Systems CONSTITUTIONAL: No fever, no malaise, no fatigue. HEENT: No recent visual problems or hearing problems. Denied any sore throat. CARDIOVASCULAR: No orthopnea, PND, no palpitations, no syncope. PULMONARY: No shortness of breath, no cough, no hemoptysis. GASTROINTESTINAL: No diarrhea, no nausea, no vomiting, no abdominal pain. Normoactive bowel sounds. NEUROLOGICAL: No headaches, no weakness, no numbness. HEMATOLOGICAL: Denies any bleeding or petechiae. GENITOURINARY: Denies any burning micturition, frequency, or urgency. MUSCULOSKELETAL/RHEUMATOLOGICAL: Denies any joint pain, swelling, or any muscle pain. ENDOCRINE: Denies any polyuria or polydipsia. Active Medications Generic Name Dose Route Start Last Admin Trade Name Freq PRN Reason Stop Dose Admin Alprazolam 0.25 mg 10/29/19 13:36 10/30/19 09:38 Xanax PO 0.25 mg Q6HR PRN Administration Mild Anxiety Alprazolam 0.5 mg 10/29/19 13:36 Xanax PO Q6HR PRN Moderate Anxiety Aspirin 81 mg 10/31/19 09:00 Aspirin PO DAILY [facility] Aspirin 325 mg 10/31/19 06:00 Aspirin PO 10/31/19 06:01 ONCE ONE Atorvastatin Calcium 80 mg 10/30/19 09:00 10/30/19 05:45 Lipitor PO 80 mg DAILY [facility] Administration Atorvastatin Calcium 80 mg 10/31/19 06:00 Lipitor PO 10/31/19 06:01 ONCE ONE Diphenhydramine HCl 25 mg 10/30/19 09:15 10/30/19 09:35 Benadryl PO 25 mg TID [facility] Administration Famotidine 20 mg 10/30/19 09:15 10/30/19 09:36 Pepcid PO 20 mg BID ROS[facility] Administration Heparin Sodium/Sodium Chloride 250 mls @ 10.002 mls/hr 10/29/19 10:00 10/30/19 10:47 25,000 unit/ Sodium Chloride IV 16 units/kg/hr .Q24H [facility] 22.861 mls/hr Titration Protocol 7 UNITS/KG/HR Sodium Chloride 1,000 ml/ IV 1,000 mls @ 150.2 mls/hr 10/30/19 09:06 10/30/19 09:36 Solution IV 10/30/19 15:45 150.2 mls/hr .Q6H40M ONE Administration 1 ML/KG/HR Metoprolol Tartrate 25 mg 10/29/19 10:15 10/30/19 05:45 Lopressor PO 25 mg BID [facility] Administration Nicotine 1 patch 10/29/19 12:30 10/30/19 05:48 Habitrol 21mg/24hr Patch TRANSDERM 1 patch DAILY [facility] Administration Nitroglycerin 0.4 mg 10/30/19 09:06 Nitrostat SUBLINGUAL Q5M PRN Chest Pain Prednisone 20 mg 10/30/19 09:15 10/30/19 09:35 PO 20 mg QID [facility] Administration Objective - Vital Signs Vital signs: Vital Signs Temp 97.8 F 10/30/19 08:00 Pulse 67 10/30/19 08:00 Resp 16 10/30/19 08:00 BP 144/90 10/30/19 08:00 Pulse Ox 97 10/30/19 08:00 Intake & Output 10/29/19 10/30/19 10/30/19 18:59 06:59 18:59 Intake Total 522.509 692.396 136.766 Output Total 400 Balance 122.509 692.396 136.766 Weight 142.882 kg 150.2 kg Intake: Intake, IV Titration 42.509 692.396 136.766 Amount Heparin Sod,Pork in 0.45% 42.509 92.396 136.766 NaCl 25,000 unit In 0.45 % NaCl 1 250ml.bag @ 7 UNITS/KG/HR 10.002 mls/hr IV .Q24H [facility] Rx#: [id number] Sodium Chloride 0.9% 1, 600 000 ml In Empty Bag 1 bag @ 1 ML/KG/HR 142.882 mls /hr IV .Q7H ONE Rx#: [id number] Oral 480 Output: Urine 400 Other: Voiding Method Toilet Toilet # Voids 3 1 - Exam -GENERAL: The patient is alert and oriented x3, not in any acute distress. Morbidly obese HEENT: Pupils are round and equally reacting to light. EOMI. No scleral icterus. No conjunctival pallor. Normocephalic, atraumatic. No pharyngeal erythema. No thyromegaly. CARDIOVASCULAR: S1 and S2 present. No murmurs, rubs, or gallops. PULMONARY: Chest is clear to auscultation, no wheezing or crackles. ABDOMEN: Soft, nontender, nondistended, normoactive bowel sounds. No palpable organomegaly. MUSCULOSKELETAL: No joint swelling or deformity. EXTREMITIES: No cyanosis, clubbing, or pedal edema. NEUROLOGICAL: Gross neurological examination did not reveal any focal deficits. SKIN: No rashes. no petechiae. - Labs CBC & Chem 7: 10/30/19 06:32 10/30/19 06:32 Labs: Abnormal Lab Results - Last 24 Hours (Table) 10/29/19 10/30/19 10/30/19 Range/Units 17:16 06:32 06:32 WBC 13.5 H (3.8-10.6) k/uL Neutrophils # 9.4 H (1.3-7.7) k/uL APTT 30.9 H (22.0-30.0) sec Carbon Dioxide 31 H (22-30) mmol/L 10/30/19 Range/Units 06:32 WBC (3.8-10.6) k/uL Neutrophils # (1.3-7.7) k/uL APTT 31.7 H (22.0-30.0) sec Carbon Dioxide (22-30) mmol/L Assessment and Plan Assessment: None STEMI Hypertension Mild acute kidney injury, improved Morbid obesity with BMI of 47 Nicotine dependence Plan: This is a pleasant 39 years old male who presents with non-STEMI, continue with heparin drip. Cardiology consult, patient is planned for cardiac cath on 10/29. We'll check echocardiogram. Continue with aspirin and Lipitor. Labs and medication were reviewed.. Continue same treatment. Continue with symptomatic treatment. Resume home medication. Monitor lytes and vitals. DVT and GI prophylaxis. Further recommendations of the clinical course of the patient DVT prophylaxis: heparin GI Prophylaxis: Pepcid Prognosis is guarded
[2019-10-30] MEDS: ALPRAZolam 0.5 MG TAB PO PRN (19:45)
[2019-10-31 03:17] LABS: Basophils % (A) 0 %; Eosinophils % (A) 0 %; HCT 50.9 % (39.0-53.0); HGB 15.9 gm/dL (13.0-17.5); Lymphocytes # (A) 1.3 k/uL (1.0-4.8); Lymphocytes % (A) 9 %; MCH 29.6 pg (25.0-35.0); MCHC 31.3 g/dL (31.0-37.0); MCV 94.5 fL (80.0-100.0); Mean Platelet Volume 8.6; Monocytes # (A) 0.6 k/uL (0-1.0); Monocytes % (A) 4 %; Neutrophils # (A) 13.2 k/uL (1.3-7.7); Neutrophils % (A) 86 %; Platelet Count 282 k/uL (150-450); RBC 5.39 m/uL (4.30-5.90); RDW 13.3 % (11.5-15.5); WBC 15.3 k/uL (3.8-10.6)
[2019-10-31 03:23] LABS: African American GFR (CKD) >90 (>60 ml/min/1.73 sqM); Anion Gap 4 mmol/L; Blood Urea Nitrogen 15 mg/dL (9-20); Calcium 9.9 mg/dL (8.4-10.2); Carbon Dioxide 30 mmol/L (22-30); Chloride 101 mmol/L (98-107); Glucose 124 mg/dL (74-99); Non-African American GFR(CKD) >90 (>60 ml/min/1.73 sqM); Potassium 5.1 mmol/L (3.5-5.1); Sodium 135 mmol/L (137-145)
[2019-10-31] MEDS: ATORVASTATIN 80 MG TAB PO SCH (05:56)
[2019-10-31] MEDS: ASPIRIN 81 MG PO SCH (05:56)
[2019-10-31] MEDS ORDERED: ASPIRIN 325 MG TAB PO ONE (06:00)
[2019-10-31] MEDS ORDERED: ATORVASTATIN 80 MG TAB PO ONE (06:00)
[2019-10-31] MEDS: NICOTINE 21MG/24HR PATCH TRANSDERM SCH ×2 (06:02→16:20)
[2019-10-31] MEDS: predniSONE 20 MG TAB PO SCH ×4 (06:02→22:42)
[2019-10-31] MEDS: METOPROLOL TARTRATE 25 MG TAB PO SCH ×2 (06:02→20:03)
[2019-10-31] MEDS: FAMOTIDINE 20 MG TAB PO SCH ×2 (06:02→20:07)
[2019-10-31] MEDS: diphenhydrAMINE 25 MG CAP PO SCH ×3 (06:02→22:42)
[2019-10-31] MEDS: HEPARIN SOD,PORK IN 0.45% NACL 25,000 UNIT in 0.45% NACL 1 250ML.BAG IV SCH (06:05)
--- NOTE | 2019-10-31 10:23 | PN ---
PROGRESS NOTE Mr. Pitts was transferred from an outside facility with elevated troponin and chest pain. His cardiac cath was canceled yesterday because of IODINE allergy. He has been appropriately pretreated with prednisone, Benadryl and Pepcid. The patient was advised cardiac catheterization. Risks, benefits, options, rationale were explained. Dr. Rose will perform procedure. He is doing well today. Vitals are stable, no JVD, S1, S2 heard normally. Lungs are clear. Abdomen and lower exam otherwise are unchanged. He is going for a cardiac cath, possible PCI today. MMODL / IJN: [id number] /
[2019-10-31] MEDS ORDERED: LIDOCAINE 1% INJ 10MG/ML (20 ML MDV) ONE (11:46)
[2019-10-31] MEDS ORDERED: VERAPAMIL 2.5 MG/ML 2 ML AMP ONE (11:46)
[2019-10-31] MEDS ORDERED: fentaNYL (PF) 50 MCG/ML 2 ML AMP ONE (11:46)
[2019-10-31] MEDS ORDERED: diphenhydrAMINE 50 MG/ML 1 ML VIAL ONE (11:57)
[2019-10-31] MEDS ORDERED: methylPREDNISolone SOD SUCCI 125 MG/2 ML VIAL ONE (11:57)
[2019-10-31] MEDS ORDERED: methylPREDNISolone SOD SUCCI 125 MG/2 ML VIAL IV ONE (11:57)
[2019-10-31] MEDS: LIDOCAINE 1% INJ 10MG/ML (20 ML MDV) SQ ONE ×2 (11:57→12:21)
[2019-10-31] MEDS ORDERED: diphenhydrAMINE 50 MG/ML 1 ML VIAL IVP ONE (11:57)
[2019-10-31] MEDS ORDERED: IV FLUID CONTINUATION 500 ML IV ONE (12:01)
[2019-10-31] MEDS ORDERED: MIDAZOLAM 2 MG/2 ML VIAL IV ONE (12:01)
[2019-10-31] MEDS ORDERED: fentaNYL (PF) 50 MCG/ML 2 ML AMP IV ONE (12:01)
[2019-10-31] MEDS ORDERED: HYDROmorphone 1 MG/ML 1 ML SYRINGE ONE (12:40)
[2019-10-31] MEDS ORDERED: HYDROmorphone 1 MG/ML 1 ML SYRINGE IVP ONE (12:43)
[2019-10-31] MEDS ORDERED: HEPARIN SODIUM 1,000 UN/ML (10ML VL) ONE (12:46)
[2019-10-31] MEDS ORDERED: PRASUGREL 10 MG TAB ONE (12:55)
[2019-10-31] MEDS ORDERED: PRASUGREL 10 MG TAB PO ONE ×2 (12:56)
[2019-10-31] MEDS ORDERED: IOPAMIDOL-370 125ML BTL INJ ONE (13:07)
[2019-10-31] MEDS ORDERED: hydrALAZINE HCL 20 MG/ML 1 ML VIAL ONE (13:10)
[2019-10-31] MEDS: hydrALAZINE HCL 20 MG/ML 1 ML VIAL IV ONE ×2 (13:12→13:20)
[2019-10-31] MEDS ORDERED: IOPAMIDOL-370 100ML BTL INJ ONE (13:14)
[2019-10-31] MEDS ORDERED: ATROPINE SULFATE 0.1 MG/ML 10ML SYRINGE IV PRN (13:49)
[2019-10-31] MEDS ORDERED: MAG HYDROX/AL HYDROX/SIMETH 30 ML CUP PO PRN (13:49)
[2019-10-31] MEDS ORDERED: RX INFO: IV CONTRAST WAS GIVEN 1 EACH MISC MISCELLANE PRN (13:49)
[2019-10-31] MEDS ORDERED: ZOLPIDEM 5 MG TAB PO PRN (13:49)
[2019-10-31] MEDS: ALPRAZolam 0.5 MG TAB PO PRN ×2 (14:34→22:42)
--- NOTE | 2019-10-31 19:57 | P.PN ---
Subjective This is a pleasant 39-year-old years old male with past medical history of hypertension, not on medication. Cigarette smoker. Patient wasn't transferred from [facility]. He presents because of 2 episodes of chest pain that started yesterday and felt like that this in the chest, radiating to the throat with left arm numbness, resolved but recurred again this morning at 8:00. Patient described it as nonspecific tightness further that pain. Little bit with dyspnea but no sweating or vomiting or palpitation or dizziness. No fever or change in urine or bowel habits He smokes about 1 pack per day, smokes marijuana but no illicit drugs In [facility] the EKG showing normal sinus rhythm with no significant ST-T changes, rate is 83 and QTC is 420. Left showing INR 1.0, d-dimer is elevated at 0.7, BNP is normal at 22.7 Sharmin troponin is elevated at 0.1, magnesium 2.0, sodium 140, potassium 4.3, ALT is normal at 37, AST is normal at 24, creatinine is slightly up at 1.4, GFR is 56, total bili 0.3 WBC is elevated at 14.5 K, hemoglobin 16.4, platelets 274k, He smokes about 1 pack per day, no alcohol or illicit drugs Labs checked here and showing troponin 0.15, triglycerides and cholesterol are elevated, WBCs 15.9 K. 10/30/2019 Patient is fully awake and oriented, resting in bed comfortably. No chest pain or dyspnea. No dizziness and no other new complaints. Vitals are stable, d-dimer is negative at 0.45 and suspicion for pulmonary embolism is very low and no need for further workup as it has more risks than b enefits Leukocytosis improvement of 13.5 K. BMP is unremarkable. Patient is going for cardiac cath today 10/31/2019 Patient Alcira bed not in distress, he denies chest pain or dyspnea. He is hemodynamically stable. Labs showed mild leukocytosis but he is on prednisone 20 mg for preparation for the cardiac catheter due to ALLERGY. Patient is going for cardiac cath today. 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 HEENT: No recent visual problems or hearing problems. Denied any sore throat. CARDIOVASCULAR: No orthopnea, PND, no palpitations, no syncope. PULMONARY: No shortness of breath, no cough, no hemoptysis. GASTROINTESTINAL: No diarrhea, no nausea, no vomiting, no abdominal pain. Normoactive bowel sounds. NEUROLOGICAL: No headaches, no weakness, no numbness. HEMATOLOGICAL: Denies any bleeding or petechiae. GENITOURINARY: Denies any burning micturition, frequency, or urgency. MUSCULOSKELETAL/RHEUMATOLOGICAL: Denies any joint pain, swelling, or any muscle pain. ENDOCRINE: Denies any polyuria or polydipsia. Active Medications Generic Name Dose Route Start Last Admin Trade Name Freq PRN Reason Stop Dose Admin Al Hydroxide/Mg Hydroxide 30 ml 10/31/19 13:49 Maalox PO Q4HR PRN Heartburn Alprazolam 0.25 mg 10/29/19 13:36 10/30/19 09:38 Xanax PO 0.25 mg Q6HR PRN Administration Mild Anxiety Alprazolam 0.5 mg 10/29/19 13:36 10/31/19 14:34 Xanax PO 0.5 mg Q6HR PRN Administration Moderate Anxiety Aspirin 81 mg 10/31/19 09:00 10/31/19 05:56 Aspirin PO Not Given DAILY [facility] Atorvastatin Calcium 80 mg 10/30/19 09:00 10/31/19 05:56 Lipitor PO Not Given DAILY ROSA Atropine Sulfate 0.5 mg 10/31/19 13:49 Atropine IV ONCE PRN Symptomatic Bradycardia Diphenhydramine HCl 25 mg 10/30/19 09:15 10/31/19 14:34 Benadryl PO 25 mg TID ROSA Administration Famotidine 20 mg 10/30/19 09:15 10/31/19 06:02 Pepcid PO 20 mg BID ROSA Administration Heparin Sodium/Sodium Chloride 250 mls @ 10.002 mls/hr 10/29/19 10:00 0 10/31/19 09:15 25,000 unit/ Sodium Chloride IV 0 units/kg/hr .Q24H ROSA 0 mls/hr Titration Protocol 7 UNITS/KG/HR Metoprolol Tartrate 25 mg 10/29/19 10:15 10/31/19 06:02 Lopressor PO 25 mg BID ROSA Administration Miscellaneous Information 1 each 10/31/19 13:49 Rx Info: Iv Contrast Was Given MISCELLANE 11/02/19 13:49 DAILY PRN Per Protocol Nicotine 1 patch 10/29/19 12:30 10/31/19 16:20 Habitrol 21mg/24hr Patch TRANSDERM 1 patch DAILY ROSA Administration Nitroglycerin 0.4 mg 10/30/19 09:06 Nitrostat SUBLINGUAL Q5M PRN Chest Pain Prasugrel 10 mg 11/01/19 09:00 Effient PO DAILY ROSA Prednisone 20 mg 10/30/19 09:15 10/31/19 17:09 PO 20 mg QID ROSA Administration Zolpidem Tartrate 5 mg 10/31/19 13:49 Ambien PO HS PRN Insomnia Objective - Vital Signs Vital signs: Vital Signs Temp 97.6 F 10/31/19 16:00 Pulse 71 10/31/19 16:00 Resp 18 10/31/19 16:00 BP 130/78 10/31/19 16:00 Pulse Ox 97 10/31/19 16:00 Intake & Output 10/30/19 10/31/19 10/31/19 18:59 06:59 18:59 Intake Total 2306.766 1371.959 2265.444 Balance 2306.766 7368.634 2527.444 Weight 149.9 kg Intake: IV 150 Intake, IV Titration 0401.791 1737.370 1056.444 Amount Heparin Sod,Pork in 0.45% 136.766 453.370 81.444 NaCl 25,000 unit In 0.45 % NaCl 1 250ml.bag @ 7 UNITS/KG/HR 10.002 mls/hr IV .Q24H [facility] Rx#: [id number] Sodium Chloride 0.9% 1, 1200 1200 975 000 ml In Empty Bag 1 bag @ 1 ML/KG/HR 150.2 mls/ hr IV .Q6H40M [facility] Rx#: [id number] Oral 970 Other: Voiding Method Toilet Toilet Toilet # Voids 2 - Exam -GENERAL: The patient is alert and oriented x3, not in any acute distress. Morbidly obese HEENT: Pupils are round and equally reacting to light. EOMI. No scleral icterus. No conjunctival pallor. Normocephalic, atraumatic. No pharyngeal erythema. No thyromegaly. CARDIOVASCULAR: S1 and S2 present. No murmurs, rubs, or gallops. PULMONARY: Chest is clear to auscultation, no wheezing or crackles. ABDOMEN: Soft, nontender, nondistended, normoactive bowel sounds. No palpable organomegaly. MUSCULOSKELETAL: No joint swelling or deformity. EXTREMITIES: No cyanosis, clubbing, or pedal edema. NEUROLOGICAL: Gross neurological examination did not reveal any focal deficits. SKIN: No rashes. no petechiae. - Labs CBC & Chem 7: 10/31/19 02:34 10/31/19 02:34 Labs: Abnormal Lab Results - Last 24 Hours (Table) 10/30/19 10/31/19 10/31/19 Range/Units 18:51 02:34 02:34 WBC 15.3 H (3.8-10.6) k/uL Neutrophils # 13.2 H (1.3-7.7) k/uL APTT 41.3 H (22.0-30.0) sec Sodium 135 L (137-145) mmol/L Glucose 124 H (74-99) mg/dL 10/31/19 Range/Units 02:34 WBC (3.8-10.6) k/uL Neutrophils # (1.3-7.7) k/uL APTT 48.3 H (22.0-30.0) sec Sodium (137-145) mmol/L Glucose (74-99) mg/dL Assessment and Plan Assessment: None STEMI Hypertension Mild acute kidney injury, improved Morbid obesity with BMI of 47 Nicotine dependence Plan: This is a pleasant 39 years old male who presents with non-STEMI, continue with heparin drip. Cardiology consult, patient is planned for cardiac cath on 10/29. We'll check echocardiogram. Continue with aspirin and Lipitor. Labs and medication were reviewed.. Continue same treatment. Continue with symptomatic treatment. Resume home medication. Monitor lytes and vitals. DVT and GI prophylaxis. Further recommendations of the clinical course of the patient DVT prophylaxis: heparin GI Prophylaxis: Pepcid Prognosis is guarded
[2019-10-31] MEDS ORDERED: ACETAMINOPHEN TAB 325 MG TAB PO PRN (21:06)
--- NOTE | 2019-10-31 21:32 | P.PRCINT ---
Percutaneous Coronary Int. - Percutaneous Coronary Intervention Percutaneous Coronary Intervention: Date of procedure: 10/31/2019 Procedure performed by: Dr. Edvin Birch Procedure performed: PCI of distal RCA with a 40 x 18 mm science drug-eluting stent, Angioseal closure Indication: NSTEMI, CAD, tobacco abuse History: Patient is a 39-year-old male with history of hypertension, chronic tobacco abuse and marijuana use who presented on 10/29/2019 with left arm and shoulder pain. Patient was found to have a non-STEMI with recommendations for heart catheterization. Description of procedure: After the above-mentioned risks, benefits and alternatives were discussed in detail with the patient, informed consent was obtained. The patient had been prepped and draped in the usual fashion and right femoral arterial axis have been obtained with a 6 Monegasque sheath placed. The patient had a diagnostic left heart catheterization performed by my partner which showed severe distal right coronary artery stenosis of approximately 85%. See full left heart catheterization report for details. I was asked to evaluate the patient and given low syntax score and single vessel disease planned for a PCI of the RCA. A 6 Monegasque AL 0.75 guide was used to engage the right coronary artery. Heparin was given for an ACT over 250. A 0.014 BMW wire was used to cross the lesion. The lesion was predilated with a 3.5 x 8 mm balloon. Next a 4.0 x 18 mm Xience stent was deployed in the distal RCA. The middle of the stent was postdilated with a 4.0 x 8 mm noncompliant balloon. Final angiograms were obtained with and without the wire. Preintervention there was 85% stenosis with RYLAN-3 flow and post intervention there was 0% residual stenosis with RYLAN 3 flow and no significant dissection noted. The guide and wire were then removed. A right femoral angiogram was performed which showed adequate positioning for closure device and a 6 Monegasque Angio-Seal was placed with hemostasis achieved. Patient tolerated the procedure well. Patient was transferred to the post catheterization holding area in stable and satisfactory condition. Total sedation time for interventional procedure was 31 minutes Assessment: 1. Non-STEMI with culprit artery right coronary artery 2. 85% distal right coronary artery stenosis status post PCI with a 40 by 18 mm Xience drug-eluting stent Plan: 1. Continue dual antiplatelets for one year 2. Aggressive risk factor modification including tobacco cessation
[2019-11-01 07:23] LABS: Basophils % (A) 0 %; Eosinophils % (A) 0 %; HCT 51.8 % (39.0-53.0); HGB 16.5 gm/dL (13.0-17.5); Lymphocytes # (A) 1.5 k/uL (1.0-4.8); Lymphocytes % (A) 7 %; MCH 29.7 pg (25.0-35.0); MCHC 31.8 g/dL (31.0-37.0); MCV 93.5 fL (80.0-100.0); Mean Platelet Volume 8.2; Monocytes # (A) 0.9 k/uL (0-1.0); Monocytes % (A) 5 %; Neutrophils # (A) 17.4 k/uL (1.3-7.7); Neutrophils % (A) 86 %; Platelet Count 282 k/uL (150-450); RBC 5.53 m/uL (4.30-5.90); RDW 13.3 % (11.5-15.5); WBC 20.3 k/uL (3.8-10.6)
[2019-11-01 07:32] LABS: African American GFR (CKD) >90 (>60 ml/min/1.73 sqM); Anion Gap 7 mmol/L; Blood Urea Nitrogen 17 mg/dL (9-20); Calcium 9.8 mg/dL (8.4-10.2); Carbon Dioxide 28 mmol/L (22-30); Chloride 103 mmol/L (98-107); Glucose 121 mg/dL (74-99); Magnesium 2.1 mg/dL (1.6-2.3); Non-African American GFR(CKD) >90 (>60 ml/min/1.73 sqM); Sodium 138 mmol/L (137-145)
[2019-11-01] MEDS ORDERED: PRASUGREL 10 MG TAB PO SCH (09:00)
[2019-11-01] MEDS: diphenhydrAMINE 25 MG CAP PO SCH (09:15)
[2019-11-01] MEDS: FAMOTIDINE 20 MG TAB PO SCH (09:15)
[2019-11-01] MEDS: predniSONE 20 MG TAB PO SCH (09:15)
[2019-11-01] MEDS: NICOTINE 21MG/24HR PATCH TRANSDERM SCH (09:16)
[2019-11-01] MEDS: ASPIRIN 81 MG PO SCH (09:16)
[2019-11-01] MEDS: ATORVASTATIN 80 MG TAB PO SCH (09:16)
[2019-11-01 11:28] VITALS: BMI 51.2
[2019-11-01 11:53] VITALS: BP 126/56; PULSE 89; RESP 17; TEMP 98.2
--- NOTE | 2019-11-01 12:23 | PN ---
PROGRESS NOTE Mr. Pitts underwent stenting of distal RCA, had an episode of pause yesterday. He has underlying sleep apnea, whenever he sleeps, he has long pauses. No beta eva is advised for this reason. Vitals are stable. The right groin and femoral arterial site as well as the radial site is clean and dry with a good pulse. Vitals are stable, no JVD, S1, S2 heard normally. Lungs are clear. Heart sounds are heard distantly. Abdomen and lower extremity exam unchanged. Patient will be discharged today, on dual antiplatelet therapy and see Dr. Rose in one week. Discharge instructions regarding activity, diet and medications were given. MMODL / IJN: [id number] /
--- NOTE | 2019-11-01 13:12 | P.CARDCATH ---
Date of Procedure: 11/01/19 Preoperative Diagnosis: Non-STEMI Postoperative Diagnosis: Critical lesion in the RCA Procedure(s) Performed: Left heart catheterization without left ventriculography Description of Procedure: HISTORY: This is a 39-year-old gentleman was admitted to the hospital with chest pain and positive troponins. He is advised to have a cardiac catheterization for definitive diagnosis CONSENT:I have discussed the risks, benefits and alternative therapies for the above-mentioned procedure and for both sedation/analgesia as well as necessary blood product administration, if indicated, as they pertain to this patient. The patient has indicated understanding and acceptance of the risks and procedures discussed. PROCEDURE: Patient was brought to the lab in a fasting state. Patient was given some IV sedation. The right wrist is infiltrated and attempts are made to cannulate right radial artery. The wire could not be advanced. The procedure was abandoned and Was done from the right femoral approach. The right groin is infiltrated with lidocaine and femoral vein was entered with a wide but no sheath was advanced. Manual compression was applied for hemostasis. Subsequently right femoral artery was entered using Seldinger technique. A 6-Albanian catheter was left in place and selective coronary arteriography was performed. Patient tolerated the procedure well. Patient went on to have stent placement of the RCA by Dr. Birch Conscious Sedation: Versed 2mg Fentanyl 50 g Duration 40minutes HEMODYNAMICS: The aortic pressure is about 140/70. Left ventricular end- diastolic pressure was not measured SELECTIVE CORONARY ARTERIOGRAPHY: LEFT MAIN: Normal length and free of occlusive disease THE LEFT ANTERIOR DESCENDING CORONARY ARTERY:. Good caliber vessel free of any occlusive disease THE LEFT CIRCUMFLEX AND IS CORONARY ARTERY:. Good caliber vessel free of occlusive disease THE RIGHT CORONARY ARTERY:. This is a good caliber vessel and nondominant with about 95% stenosis in the distal portion LEFT VENTRICULOGRAPHY: Not performed FINAL IMPRESSION: Critical lesion involving the distal RCA PLAN:stent placement of the RCA to be done by Dr. Birch PROGNOSIS: Fair
--- NOTE | 2019-11-01 22:34 | P.DS ---
Providers Date of admission: 10/29/19 09:35 Attending physician: Stan Cherry MD Consults: 10/29/19 09:53 Consult Physician Routine Consulting Provider: Beverley Rose Consult Reason/Comments: UA, ELEVATED TROPONIN Do you want consulting provider notified?: Already Contacted 10/31/19 13:49 Consult Physician Routine Consulting Provider: [facility] Consult Reason/Comments: Post Interventional patient Do you want consulting provider notified?: Already Contacted Primary care physician: Stated None Hospital Course: Diagnoses: None STEMI, cardiac cath showed critical lesion of the RCA, status post stent placement Hypertension Mild acute kidney injury, improved Morbid obesity with BMI of 47 Nicotine dependence Hospital course: This is a pleasant 39-year-old years old male with past medical history of hypertension, not on medication. Cigarette smoker. Patient wasn't transferred from [facility]. He presents because of 2 episodes of chest pain that started when day earlier, troponin is elevated at 0.1. The EKG changes. Patient was found to have non-STEMI and started on heparin drip. Core Shaper Sides evaluated the patient and patient underwent a cardiac cath by Dr. Birch and found to have critical lesion in the RCA, status post stent placement afterwards patient was started on aspirin and Effient and importance of adherent stool medication is explained to the patient and he verbalized understanding and acceptance. Repeat d-dimer in the hospital was negative at 0.45 patient has low probability for PE. Eventually patient to return clinically to his baseline and on the day of discharge he denies chest pain or dyspnea, no abdominal pain, tolerating diet, no change in urine or bowel habits. No fever. Patient was eager to be discharged today Patient was cleared for discharge by strip cutting machine operator Problems and management plan were discussed with the patient and he verbalized understanding and acceptance Patient was found stable and can be discharged home however he needs follow-up as an outpatient. Patient was instructed to follow up with PCP Dr. Mathew Maddox within one week and patient agrees. Also patient was instructed to follow up with [facility] strip cutting machine operator Dr. Rose [address] Arredondo for sleep studies also in 2 weeks, patient agrees to call and make his own appointments as he told me Gen: patient is a AAOx3, no distress CVS: S1-S2, RRR, no murmur Lungs: B/L CTA, no wheezing Abdomen: soft, no distention, no tenderness, positive bowel sounds Extremity: no leg edema or induration Time spent more than 35 minutes Plan - Discharge Summary Discharge Rx Participant: No New Discharge Prescriptions: New Aspirin 81 mg PO DAILY #30 chew Prasugrel [Effient] 10 mg PO DAILY #30 tab Nicotine 21Mg/24Hr Patch [Habitrol] 1 patch TRANSDERM DAILY #7 patch Atorvastatin [Lipitor] 80 mg PO DAILY #30 tab Nitroglycerin Sl Tabs [Nitrostat] 0.4 mg SUBLINGUAL Q5M PRN #30 tab PRN Reason: Chest Pain Famotidine [Pepcid] 20 mg PO BID #14 tab Continue ALPRAZolam [Xanax] 0.25 mg PO BID PRN PRN Reason: Anxiety Discontinued Ibuprofen [Motrin Ib] 800 mg PO Q6H PRN PRN Reason: Pain Discharge Medication List ALPRAZolam [Xanax] 0.25 mg PO BID PRN 07/20/19 [History] Aspirin 81 mg PO DAILY #30 chew 11/01/19 [Rx] Atorvastatin [Lipitor] 80 mg PO DAILY #30 tab 11/01/19 [Rx] Famotidine [Pepcid] 20 mg PO BID #14 tab 11/01/19 [Rx] Nicotine 21Mg/24Hr Patch [Habitrol] 1 patch TRANSDERM DAILY #7 patch 11/01/19 [Rx] Nitroglycerin Sl Tabs [Nitrostat] 0.4 mg SUBLINGUAL Q5M PRN #30 tab 11/01/19 [Rx] Prasugrel [Effient] 10 mg PO DAILY #30 tab 11/01/19 [Rx] Follow up Appointment(s)/Referral(s): Mathew Maddox NPC [REFERRING] - 1 Week Beverley Rose MD [STAFF PHYSICIAN] - 2 Weeks Yuriy Arredondo MD [STAFF PHYSICIAN] - 2 Weeks () Patient Instructions/Handouts: Heart Attack (DC), Left Heart Catheterization (DC) Activity/Diet/Wound Care/Special Instructions: heart healthy diet activity limitations post cath do not submerge wrist or leg in water gently clean around area, no vigorous scrubbing is needed apply pressure when sneezing, coughing, laughing, or straining to have a bowel movement if area started bleeding apply pressure and return to hospital do not bend/flex the wrist do not lift any heavy objects (over 10 pounds) for 1 week Discharge Disposition: HOME SELF-CARE
== END 2019-11-01 11:52 | disposition home or self-care (01) | DRG 247 ==
LOC: 3SCARD 09:35
PROVIDERS: ADMIT Internal Medicine; ATTEND Internal Medicine
PROC: 027034Z Dilation of Coronary Artery, One Artery with Drug-eluting Intraluminal Device, Percutaneous Approach (ICD-10-PCS; principal; 2019-10-29)
PROC: B2111ZZ Fluoroscopy of Multiple Coronary Arteries using Low Osmolar Contrast (ICD-10-PCS; 2019-10-29)
PROC: 4A023N7 Measurement of Cardiac Sampling and Pressure, Left Heart, Percutaneous Approach (ICD-10-PCS; 2019-10-29)
DX: I21.4 Non-ST elevation (NSTEMI) myocardial infarction (principal); N17.9 Acute kidney failure, unspecified; Z68.43 Body mass index [BMI] 50.0-59.9, adult; E66.01 Morbid (severe) obesity due to excess calories; I11.9 Hypertensive heart disease without heart failure; I25.10 Atherosclerotic heart disease of native coronary artery without angina pectoris; E78.5 Hyperlipidemia, unspecified; G47.30 Sleep apnea, unspecified; D72.829 Elevated white blood cell count, unspecified; F17.210 Nicotine dependence, cigarettes, uncomplicated; Z71.6 Tobacco abuse counseling; Z71.3 Dietary counseling and surveillance; Z86.14 Personal history of Methicillin resistant Staphylococcus aureus infection; Z87.19 Personal history of other diseases of the digestive system; Z98.890 Other specified postprocedural states; Z87.892 Personal history of anaphylaxis; Z91.041 Radiographic dye allergy status
CPT/HCPCS: 71045; 80048; 80061; 83735; 84484; 85025; 85379; 85610; 85730; 93306; 93454

== ENCOUNTER → 2020-04-02 | Outpatient (CLI) | payer OTHER ==
--- NOTE | 2020-04-02 22:47 | CONS ---
CONSULTATION REASON FOR CONSULTATION: Sleep apnea. This is a 39-year-old male patient with an already established diagnosis of obstructive sleep apnea. The patient underwent his sleep study at [facility]. The patient presented with typical symptoms of obstructive sleep apnea, including loud snoring, sleep fragmentation, excessive sleep fragmentation and chronic hypersomnia and sleepiness during the day. Based on that, he was given a screening polysomnogram and the patient was found to have severe obstructive sleep apnea; his overall apnea- hypopnea index was measured to be 67 and the lowest pulse ox was 58%. Based on that, the patient was given a CPAP titration and he was titrated to a CPAP pressure of 10 cm of water. During the titration oxygen was also added at 3 L/minute nasal cannula. He wanted to establish herself in our office, and for that reason he came in for a compliancy check. Note that his polysomnogram was done on 01/01/2020. I checked his CPAP machine. The patient has a ResMed CPAP unit which is adjusted at a pressure of 10 cm of water. He has been very compliant, and over the past 30 days the patient utilized his machine almost every night. He is achieving more than 4 hours 70% of the time. The patient has been averaging around 5.5 hours of CPAP use per night. Leak is on the order of 30 L/minute and his AHI is down to 1.1. He is using a DreamWear [id number] large-sized nose mask. He is benefitting from the treatment. He is waking up much more refreshed and alert during the day. His Huttig score is gradually improving and is currently down to 15. He is going to bed around midnight, waking up at 8 o'clock in the morning. No major hypersomnia or sleepiness while on CPAP therapy and he is benefitting from the treatment. He is trying also to lose weight. No nocturnal angina or chest pain. No shortness of breath. No nocturnal heartburn. No significant restlessness while on the CPAP unit. PAST MEDICAL HISTORY: Obstructive sleep apnea, hyperlipidemia, obesity, hypertension, chronic anxiety, hydradenitis suppurative and coronary artery disease. PAST SURGICAL HISTORY: Past surgical history includes cardiac catheterization and stenting, cholecystectomy, and removal of a pilonidal cyst. DRUG ALLERGIES: IODINE OUTPATIENT MEDICATION LIST: Outpatient medication list includes Effexor, atorvastatin, Xanax, Lipitor and doxycycline. SOCIAL HISTORY: The patient is a smoker, one pack of cigarettes a day. He also smokes medical marijuana for chronic anxiety. No history of alcoholism. No history of IV drugs. FAMILY HISTORY: Strong family history of heart disease in his mother, who has coronary artery disease. His mother also has diabetes and hypertension and she has obstructive sleep apnea. Father is healthy. REVIEW OF SYSTEMS: Fourteen-point review of systems was done. It is positive for weight gain over the years, as the patient has gained approximately 85 pounds over the past one year. No history of any motor vehicle accident because of feeling drowsy or sleepy. No history of sleep paralysis or hallucinations or cataplexy. He drinks coffee, around 1-2 cups in the morning. No history of substance abuse or alcoholism. No history of head trauma. He has chronic anxiety. Smokes medical marijuana. His current Huttig score is 15. No history of any seizure activity. No heartburn. No chest pain. No shortness of breath. No symptoms of restlessness in the lower extremities. PHYSICAL EXAMINATION: BP is 109/75, pulse 97, respirations 15, temperature 98.0, saturation 96% on room air. Height is 5 feet 6 inches. Weight is 331. Huttig score is 15. Neck size 21 inches. BMI 53.4. GENERAL APPEARANCE: Obese, calm, comfortable. HEAD: Atraumatic, normocephalic. NECK: Short. Crowding in posterior pharynx is present. There is no goiter or neck masses. LUNGS: Diminished. Otherwise clear. HEART: Heart sounds are distant, regular rate and rhythm. Normal S1, S2. No S3, S4. No murmurs. ABDOMEN: Obese, soft, nontender. No organomegaly. EXTREMITIES: No edema. No cyanosis or clubbing. NEUROLOGIC: Awake and alert. There is no focal neurological deficit. PSYCHIATRIC: Positive for anxiety. No depression. IMPRESSION: 1. Severe obstructive sleep apnea with an AHI of 67, currently on CPAP with a pressure of 10 cm of water along with oxygen at 3 L/minute nasal cannula. The patient is demonstrating excellent clinical response and he is benefitting from CPAP therapy. His original study was done in December of 2019 at [facility]. 2. Morbid obesity with a BMI of 53. 3. Chronic hypersomnia, improving. Huttig score is down to 15. 4. Coronary artery disease with previous coronary stent insertion. 5. Hypertension. 6. Hyperlipidemia. 7. Chronic anxiety; smoking medical marijuana. 8. Tobacco smoker. 9. Hidradenitis suppurativa. PLAN: 1. Continue CPAP therapy at the same level of pressure. 2. Compliance data was checked. No need for any further adjustment. 3. Continue oxygen at 3 L along with CPAP therapy at a pressure of 10. 4. DreamWear [id number] large-size nose mask. 5. Optimize cardiovascular risk factors. 6. See me back in the office in a year's time in followup. His treatment is successful for now. MMODL / IJN: [id number] /
== END | disposition home or self-care (01) ==
LOC: SLEEP 14:35
PROVIDERS: ATTEND Internal Medicine Critical Care Medicine
DX: G47.33 Obstructive sleep apnea (adult) (pediatric) (principal); E66.01 Morbid (severe) obesity due to excess calories; F17.290 Nicotine dependence, other tobacco product, uncomplicated; L73.2 Hidradenitis suppurativa; F12.90 Cannabis use, unspecified, uncomplicated; E78.5 Hyperlipidemia, unspecified; I25.10 Atherosclerotic heart disease of native coronary artery without angina pectoris; I10 Essential (primary) hypertension; F41.9 Anxiety disorder, unspecified; Z68.43 Body mass index [BMI] 50.0-59.9, adult; Z95.5 Presence of coronary angioplasty implant and graft
CPT/HCPCS: 99211